=== PATIENT | male | born 1965 | race Asian ===

== ENCOUNTER → 2018-05-05 | Outpatient (CLI) | payer BC | LOC: BMCIMAGING 14:05 | PROVIDERS: ATTEND Internal Medicine | DX: Z13.820 Encounter for screening for osteoporosis (principal); M81.0 Age-related osteoporosis without current pathological fracture ==

== ENCOUNTER → 2018-10-26 | Outpatient (CLI) | payer BC, OTHER ==
[~2018-10-26] MED LIST: IOPAMIDOL (ISOVUE-300) 100 ML BTL ONE
== END ==
LOC: FIMAGING 14:53
PROVIDERS: ATTEND Internal Medicine
DX: R10.12 Left upper quadrant pain (principal); K22.9 Disease of esophagus, unspecified
CPT/HCPCS: Q9967